=== PATIENT | male | born 1940 | race Caucasian/White ===

== ENCOUNTER 2018-05-22 11:15 | Inpatient (IN) | payer MEDICARE, OTHER ==
[~2018-05-22] VITALS: Ht 170.2 cm; Wt 105.7 kg
[2018-05-22 12:09] LABS: BASO # 0.1 x10^3/uL (0.0-0.2); BASO % 1 % (0-3); EOS # 0.2 x10^3/uL (0.0-0.7); EOS % 2 % (0-3); HEMATOCRIT 42.8 % (39.0-53.0); HEMOGLOBIN 14.7 g/dL (13.0-17.5); LYMPH % 22 % (24-48); MEAN CORPUSCULAR HEMOGLOBIN 32 pg (25-35); MEAN CORPUSCULAR HGB CONC 34 g/dL (31-37); MEAN CORPUSCULAR VOLUME 94 fL (79-100); MONO # 0.4 x10^3/uL (0.0-1.1); MONO % 5 % (0-9); NEUT # 6.6 x10^3uL (1.8-7.7); NEUT % 71 % (31-73); PLATELET COUNT 200 x10^3/uL (140-400); RED BLOOD COUNT 4.53 x10^6/uL (4.30-5.70); RED CELL DISTRIBUTION WIDTH 14.6 % (11.5-14.5); WHITE BLOOD COUNT 9.3 x10^3/uL (4.0-11.0)
[2018-05-22 12:14] LABS: CALCIUM 9.2 mg/dL (8.5-10.1); CREATININE 0.9 mg/dL (0.7-1.3); GFR 81.4; POTASSIUM 4.6 mmol/L (3.5-5.1)
[2018-05-22 12:20] LABS: PROTHROMBIN TIME PATIENT 12.2 SEC (11.7-14.0)
[2018-05-22 12:21] LABS: ALBUMIN 3.7 g/dL (3.4-5.0); ALBUMIN/GLOBULIN RATIO 1.1 (1.0-1.7); TOTAL BILIRUBIN 0.3 mg/dL (0.2-1.0); TOTAL PROTEIN 7.1 g/dL (6.4-8.2)
[2018-05-22 13:15] LABS: BILIRUBIN,URINE NEGATIVE (NEG); CLARITY,URINE CLEAR; COLOR,URINE YELLOW; NITRITE,URINE NEGATIVE (NEG); PROTEIN,URINE NEGATIVE (NEG-TRACE); UROBILINOGEN,URINE 0.2 mg/dL (0.2 mg/dL)
[2018-05-22 13:25] LABS: BACTERIA,URINE 0 /HPF (0-FEW); RBC,URINE 0 /HPF (0-2); SQUAMOUS EPITHELIAL CELL,UR OCC /LPF; WBC,URINE RARE /HPF (0-4)
[2018-05-22] MEDS ORDERED: GADOBUTROL 10 MMOL/10 ML VIAL IV ONE (14:00)
--- NOTE | 2018-05-22 15:02 | RAD ---
MRI Lumbar Spine without and with contrast History: Bilateral leg weakness, prostate cancer Technique: Multiplanar, multi sequential pre and postcontrast MR imaging was performed of the lumbar spine. Contrast: 10 cc Gadavist Comparison: None Findings: Lumbar vertebral body stature and AP alignment are maintained. There is [id number] degenerative disc disease at L4-5, minimally L2-3, L3-4, and L1-2. There is somewhat diffuse narrowing of the lumbar spinal canal on a developmental basis. There is old superior endplate concavity of T11. There is a probable small hemangioma of the T11 vertebral body, slightly hyperintense on the T1 sequence, no significant suspicious edematous marrow lesion identified. Conus terminates at L1. There is no nodular enhancement of the conus or cauda equina, no enhancement in the intervertebral disc spaces. There is nonspecific edema of the posterior subcutaneous fat. Poorly evaluated, there is likely distention of the urinary bladder, difficult to exclude posterior wall thickening. L1-L2: There is no additional spinal stenosis or neural foramina compromise. Posterior epidural epidural lipomatosis somewhat indents the posterior thecal sac. L2-L3: There is mild prominence of posterior epidural fat, mild buckling of the ligamentum flavum, and facet hypertrophic change. There is negligible disc osteophyte complex. There is overall mild attenuation of the thecal sac mostly from posterior epidural lipomatosis. There is negligible disc osteophyte complex in the inferior neural foramina. Neural foramina are not significantly narrowed. L3-L4: At the intervertebral disc space level, there is minimal disc osteophyte complex. There is a superimposed extrusion extending above the intervertebral disc space, superior extent to the superior one third of the L3 vertebral body more eccentric to the right lateral recess. This measures about 1.6 cm CC by about 0.7 cm AP by 1.1 cm transverse. At the intervertebral disc space level, there is prominence of posterior epidural fat, mild buckling of the ligamentum flavum and facet degenerative change. At the intervertebral disc space level, there is overall moderate spinal stenosis with limited preserved subarachnoid space. There is a greater degree of right lateral recess stenosis above the intervertebral disc space level by the extrusion. There is contact of the right L3 nerve root in the right lateral recess. At the mid aspect of L3, there is somewhat limited preserved subarachnoid space. Neural foramina are overall adequate. L4-L5: There is mild buckling of the ligamentum flavum and right greater than left facet degenerative change. There is very shallow posterior bulge/protrusion. There is mild prominence of posterior epidural fat. There is mild to moderate attenuation of the thecal sac mostly on a developmental basis in combination with epidural lipomatosis, mild additional right lateral recess stenosis. There is moderate to severe left and zcrp-ok-[id number] right neural foramina compromise primarily from posteriorly by facets. L5-S1: Spinal canal and neural foramina are adequate. Impression: 1. There is diffuse narrowing of the spinal canal on a developmental basis. There is additional spinal stenosis at and above the L3-4 intervertebral disc space level in part from extrusion more eccentric to the right lateral recess with contact of the right L3 nerve root. 2. There is left greater than right L4-5 neural foramina compromise. 3. There is [id number] degenerative disc disease L4-5, minimally at other levels. 4. Not fully included, there is distention of the urinary bladder, mild posterior wall thickening difficult to exclude. Electronically signed by: Nima Rodas MD (05/22/2018 2:59 PM) [email or web address]
[2018-05-22] MEDS ORDERED: fentaNYL PF VIAL 100 MCG/2 ML VIAL IV ONE (15:15)
--- NOTE | 2018-05-22 15:22 | PHYS DOC ---
Past Medical History Past Medical History: CAD, High Cholesterol, Heart Disease, Hypertension Past Surgical History: Coronary Bypass Surgery, Knee Replacement Alcohol Use: Occasionally Drug Use: None Adult General Chief Complaint Chief Complaint: MECHANICAL FALL HPI HPI Patient is a 77 year old male percent with back pain. He has had back pain for a few days but today he just could not get up his right leg was too weak so he called 911 to come to the hospital. He has had no bowel or bladder incontinence no numbness just the weakness especially with trying to move his hip Review of Systems Review of Systems Constitutional: Denies fever or chills [] Eyes: Denies change in visual acuity, redness, or eye pain [] HENT: Denies nasal congestion or sore throat [] Respiratory: Denies cough or shortness of breath [] Cardiovascular: No additional information not addressed in HPI [] GI: Denies abdominal pain, nausea, vomiting, bloody stools or diarrhea [] Integument: Denies rash or skin lesions [] Neurologic: Denies headache,s or sensory changes [] Endocrine: Denies polyuria or polydipsia [] All other systems were reviewed and found to be within normal limits, except as documented in this note. Current Medications Current Medications Current Medications Medications (Trade) Dose Ordered Sig/Naveed Start Time Stop Time Status Last Admin Dose Admin Fentanyl Citrate (Fentanyl 2ml Vial) 50 mcg 1X ONCE 05/22/18 15:15 05/22/18 15:16 DC Gadobutrol (Gadavist) 10 mmol 1X ONCE 05/22/18 14:00 05/22/18 14:01 DC 05/22/18 14:20 10 MMOL Methylprednisolone Sodium Succinate (SOLU-Medrol 125MG VIAL) 125 mg 1X ONCE 05/22/18 15:30 05/22/18 15:31 UNV Allergies Allergies Allergies Coded Allergies Type Severity Reaction Last Updated Verified No Known Drug Allergies 11/06/13 No Physical Exam Physical Exam Constitutional: Well developed, well nourished, no acute distress, non-toxic appearance. [] HENT: Normocephalic, atraumatic, bilateral external ears normal, oropharynx moist, no oral exudates, nose normal. [] Eyes: PERRLA, EOMI, conjunctiva normal, no discharge. [] Neck: Normal range of motion, no tenderness, supple, no stridor. [] Cardiovascular:Heart rate regular rhythm, no murmur [] Lungs & Thorax: Bilateral breath sounds clear to auscultation [] Abdomen: Bowel sounds normal, soft, no tenderness, no masses, no pulsatile masses. [] Skin: Warm, dry, no erythema, no rash. [] Back: Midline tenderness at L4-L5 noted Extremities: No tenderness, no cyanosis, no clubbing, ROM intact, no edema. [] Neurologic: Alert and oriented X 3, patient is decreased strength 4 out of 5 or even a little less with knee extension and hip flexion. Distal strength is intact sensation is intact pedal pulses are intact Psychologic: Affect normal, judgement normal, mood normal. [] Current Patient Data Vital Signs Vital Signs Date Time Temp Pulse Resp B/P (MAP) Pulse Ox O2 Delivery O2 Flow Rate FiO2 05/22/18 11:15 97.8 69 22 139/71 (93) 97 Room Air 97.8 Lab Values Laboratory Tests Test 05/22/18 11:50 05/22/18 13:00 White Blood Count 9.3 x10^3/uL (4.0-11.0) Red Blood Count 4.53 x10^6/uL (4.30-5.70) Hemoglobin 14.7 g/dL (13.0-17.5) Hematocrit 42.8 % (39.0-53.0) Mean Corpuscular Volume 94 fL (79-100) Mean Corpuscular Hemoglobin 32 pg (25-35) Mean Corpuscular Hemoglobin Concent 34 g/dL (31-37) Red Cell Distribution Width 14.6 % (11.5-14.5) H Platelet Count 200 x10^3/uL (140-400) Neutrophils (%) (Auto) 71 % (31-73) Lymphocytes (%) (Auto) 22 % (24-48) L Monocytes (%) (Auto) 5 % (0-9) Eosinophils (%) (Auto) 2 % (0-3) Basophils (%) (Auto) 1 % (0-3) Neutrophils # (Auto) 6.6 x10^3uL (1.8-7.7) Lymphocytes # (Auto) 2.0 x10^3/uL (1.0-4.8) Monocytes # (Auto) 0.4 x10^3/uL (0.0-1.1) Eosinophils # (Auto) 0.2 x10^3/uL (0.0-0.7) Basophils # (Auto) 0.1 x10^3/uL (0.0-0.2) Prothrombin Time 12.2 SEC (11.7-14.0) Prothrombin Time INR 1.0 (0.8-1.1) Sodium Level 142 mmol/L (136-145) Potassium Level 4.6 mmol/L (3.5-5.1) Chloride Level 106 mmol/L (98-107) Carbon Dioxide Level 29 mmol/L (21-32) Anion Gap 7 (6-14) Blood Urea Nitrogen 13 mg/dL (8-26) Creatinine 0.9 mg/dL (0.7-1.3) Estimated GFR (Cockcroft-Gault) 81.4 BUN/Creatinine Ratio 14 (6-20) Glucose Level 132 mg/dL (70-99) H Calcium Level 9.2 mg/dL (8.5-10.1) Total Bilirubin 0.3 mg/dL (0.2-1.0) Aspartate Amino Transferase (AST) 26 U/L (15-37) Alanine Aminotransferase (ALT) 48 U/L (16-63) Alkaline Phosphatase 64 U/L (46-116) Total Protein 7.1 g/dL (6.4-8.2) Albumin 3.7 g/dL (3.4-5.0) Albumin/Globulin Ratio 1.1 (1.0-1.7) Urine Collection Type Unknown Urine Color Yellow Urine Clarity Clear Urine pH 5.0 Urine Specific [place] 1.020 Urine Protein Negative mg/dL (NEG-TRACE) Urine Glucose (UA) Negative mg/dL (NEG) Urine Ketones (Stick) Negative mg/dL (NEG) Urine Blood Negative (NEG) Urine Nitrite Negative (NEG) Urine Bilirubin Negative (NEG) Urine Urobilinogen Dipstick 0.2 mg/dL (0.2 mg/dL) Urine Leukocyte Esterase Negative (NEG) Urine RBC 0 /HPF (0-2) Urine WBC Rare /HPF (0-4) Urine Squamous Epithelial Cells Occ /LPF Urine Bacteria 0 /HPF (0-FEW) Urine Mucus Marked /LPF Laboratory Tests 05/22/18 11:50 Laboratory Tests 05/22/18 11:50 EKG EKG [] Radiology/Procedures Radiology/Procedures [] Impressions: 1. There is diffuse narrowing of the spinal canal on a developmental basis. There is additional spinal stenosis at and above the L3-4 intervertebral disc space level in part from extrusion more eccentric to the right lateral recess with contact of the right L3 nerve root. 2. There is left greater than right L4-5 neural foramina compromise. 3. There is vomk-ij-jqwzhlnb degenerative disc disease L4-5, minimally at other levels. 4. Not fully included, there is distention of the urinary bladder, mild posterior wall thickening difficult to exclude. Electronically signed by: Nima Rodas MD (05/22/2018 2:59 PM) [id number] Course & Med Decision Making Course & Med Decision Making Pertinent Labs and Imaging studies reviewed. (See chart for details) []77 over male with history of prostate cancer course the PA presenting with back pain and right leg weakness he does have objective weakness on exam. MRI was done due to prostate cancer history it does show the above findings I suspect a herniated discus leading to his symptoms but he cannot walk he is too weak. He'll be admitted to the service of Dr. Dunn for physical therapy pain control and further evaluation. FENTANYL Solu-Medrol given in the emergency room Dragjoseph Disclaimer Dragon Disclaimer This electronic medical record was generated, in whole or in part, using a voice recognition dictation system. Departure Departure Impression: Primary Impression: Back pain Disposition: ADMITTED INPATIENT Admitting Physician: Tim Dunn Condition: STABLE Referrals: NO PCP (PCP) NURIA LOU MD May 22, 2018 15:22
[2018-05-22] MEDS ORDERED: methylPREDNISolone SOD SUCC PF 125 MG/2 ML VIAL. IV ONE (15:30)
[2018-05-22] MEDS ORDERED: MORPHINE SULFATE 4 MG/ML VIAL. IV PRN (15:30)
[2018-05-22 17:50] VITALS: BP 185/89
[2018-05-22 19:00] VITALS: BP 157/72
--- NOTE | 2018-05-22 21:14 | HP ---
ADMIT DATE: 05/22/2018 CHIEF COMPLAINT: Back pain after a fall. HISTORY OF PRESENT ILLNESS: The patient is a pleasant 77-year-old male who fell. He has had back pain for a couple of days. He called 911. Rates his symptoms are 8/10. We gave him some meds in the ER but that was not working. We are going to admit the patient. We can be doing some physical therapy, occupational therapy. It should be noted that we did do some imaging, but he does have some bulging disks. PAST MEDICAL HISTORY: CAD, hypertension, hyperlipidemia, coronary artery bypass surgery and knee replacement. ALLERGIES: None. FAMILY HISTORY: Coronary artery disease. SOCIAL HISTORY: Does not drink, smoke or take drugs. MEDICATIONS: Reviewed, please refer to the MRAD. REVIEW OF SYSTEMS: GENERAL: No history of weight change, weakness or fevers. SKIN: No bruising, hair changes or rashes. EYES: No blurred, double or loss of vision. NOSE AND THROAT: No history of nosebleeds, hoarseness or sore throat. HEART: No history of palpitations, chest pain or shortness of breath on exertion. LUNGS: Denies cough, hemoptysis, wheezing or shortness of breath. GASTROINTESTINAL: Denies changes in appetite, nausea, vomiting, diarrhea or constipation. GENITOURINARY: No history of frequency, urgency, hesitancy or nocturia. NEUROLOGICAL: The patient complains of leg weakness. PSYCHIATRIC: No history of panic, anxiety or depression. ENDOCRINE: No history of heat or cold intolerance, polyuria or polydipsia. MUSCULOSKELETAL: The patient complains of back pain. PHYSICAL EXAMINATION: VITAL SIGNS: Temperature afebrile, pulse 90, respirations 18 and blood pressure 144/90. GENERAL: He is alert and cooperative. HEART: Normal S1 and S2. LUNGS: Clear. ABDOMEN: Soft. EXTREMITIES: No edema. SKIN: No rashes. ENDOCRINE: No thyromegaly. LYMPHATICS: No cervical nodes. HEMATOPOIETIC: No bruising. LABORATORY DATA: Hematology is normal. Electrolytes are normal. Glucose is 132. RADIOLOGICAL DATA: Lumbar spine MRI shows diffuse narrowing of the spinal canal on a developmental basis. There is additional spinal stenosis at above L3-L4 with intravertebral disk space extrusion. There is left greater than right L4-L5 neural foraminal compromise. There is [id number] degenerative disk disease at L4-L5. ASSESSMENT AND PLAN: Radiculopathy. The patient has been admitted. We will consult Dr. Castillo. Physical Therapy and Occupational Therapy consult. PT, OT. IV Solu-Medrol, p.r.n. narcotics. Frequent labs. Home meds. NIAL Claritza ACKERMAN DO DR: ELISE/garcia JOB#: [id number] / [id number]
[2018-05-22 22:58] VITALS: BP 172/76
[2018-05-23 03:00] VITALS: BP 138/75
[2018-05-23 07:00] VITALS: BP 160/71
[2018-05-23 11:00] VITALS: BP 164/70
--- NOTE | 2018-05-23 12:01 | PDOC ---
PROGRESS NOTES Chief Complaint Chief Complaint Back pain Radiculopathy CAD HTN HLD CABG Knee replacement History of Present Illness History of Present Illness Pt seen and examined Dw RN VSS Pt states pain is greatly improved with steroids Pt states improved mobility in legs Vitals Vitals Vital Signs Date Time Temp Pulse Resp B/P (MAP) Pulse Ox O2 Delivery O2 Flow Rate FiO2 05/23/18 11:00 98.1 72 18 164/70 (101) 96 Room Air 98.1 Physical Exam General: Alert, Cooperative, No acute distress Heart: Regular rate, No murmurs Lungs: Clear, Other Abdomen: Soft, No tenderness Extremities: No clubbing, No cyanosis Skin: No rashes, No breakdown Labs LABS Laboratory Tests Test 05/22/18 13:00 Urine Collection Type Unknown Urine Color Yellow Urine Clarity Clear Urine pH 5.0 Urine Specific [place] 1.020 Urine Protein Negative mg/dL (NEG-TRACE) Urine Glucose (UA) Negative mg/dL (NEG) Urine Ketones (Stick) Negative mg/dL (NEG) Urine Blood Negative (NEG) Urine Nitrite Negative (NEG) Urine Bilirubin Negative (NEG) Urine Urobilinogen Dipstick 0.2 mg/dL (0.2 mg/dL) Urine Leukocyte Esterase Negative (NEG) Urine RBC 0 /HPF (0-2) Urine WBC Rare /HPF (0-4) Urine Squamous Epithelial Cells Occ /LPF Urine Bacteria 0 /HPF (0-FEW) Urine Mucus Marked /LPF Review of Systems Review of Systems CO pain CO fatigue Assessment and Plan Assessmemt and Plan Back pain Radiculopathy CAD HTN HLD CABG Knee replacement Plan: Neurosurgery consult Continue solumedrol Nystatin powder for skin PT/OT Probable D/C to home if ok with PT/OT Comment Review of Relevant I have reviewed the following items katie (where applicable) has been applied. Labs Laboratory Tests Test 05/22/18 11:50 05/22/18 13:00 White Blood Count 9.3 x10^3/uL (4.0-11.0) Red Blood Count 4.53 x10^6/uL (4.30-5.70) Hemoglobin 14.7 g/dL (13.0-17.5) Hematocrit 42.8 % (39.0-53.0) Mean Corpuscular Volume 94 fL (79-100) Mean Corpuscular Hemoglobin 32 pg (25-35) Mean Corpuscular Hemoglobin Concent 34 g/dL (31-37) Red Cell Distribution Width 14.6 % (11.5-14.5) Platelet Count 200 x10^3/uL (140-400) Neutrophils (%) (Auto) 71 % (31-73) Lymphocytes (%) (Auto) 22 % (24-48) Monocytes (%) (Auto) 5 % (0-9) Eosinophils (%) (Auto) 2 % (0-3) Basophils (%) (Auto) 1 % (0-3) Neutrophils # (Auto) 6.6 x10^3uL (1.8-7.7) Lymphocytes # (Auto) 2.0 x10^3/uL (1.0-4.8) Monocytes # (Auto) 0.4 x10^3/uL (0.0-1.1) Eosinophils # (Auto) 0.2 x10^3/uL (0.0-0.7) Basophils # (Auto) 0.1 x10^3/uL (0.0-0.2) Prothrombin Time 12.2 SEC (11.7-14.0) Prothromb Time International Ratio 1.0 (0.8-1.1) Sodium Level 142 mmol/L (136-145) Potassium Level 4.6 mmol/L (3.5-5.1) Chloride Level 106 mmol/L (98-107) Carbon Dioxide Level 29 mmol/L (21-32) Anion Gap 7 (6-14) Blood Urea Nitrogen 13 mg/dL (8-26) Creatinine 0.9 mg/dL (0.7-1.3) Estimated GFR (Cockcroft-Gault) 81.4 BUN/Creatinine Ratio 14 (6-20) Glucose Level 132 mg/dL (70-99) Calcium Level 9.2 mg/dL (8.5-10.1) Total Bilirubin 0.3 mg/dL (0.2-1.0) Aspartate Amino Transf (AST/SGOT) 26 U/L (15-37) Alanine Aminotransferase (ALT/SGPT) 48 U/L (16-63) Alkaline Phosphatase 64 U/L (46-116) Total Protein 7.1 g/dL (6.4-8.2) Albumin 3.7 g/dL (3.4-5.0) Albumin/Globulin Ratio 1.1 (1.0-1.7) Urine Collection Type Unknown Urine Color Yellow Urine Clarity Clear Urine pH 5.0 Urine Specific [place] 1.020 Urine Protein Negative mg/dL (NEG-TRACE) Urine Glucose (UA) Negative mg/dL (NEG) Urine Ketones (Stick) Negative mg/dL (NEG) Urine Blood Negative (NEG) Urine Nitrite Negative (NEG) Urine Bilirubin Negative (NEG) Urine Urobilinogen Dipstick 0.2 mg/dL (0.2 mg/dL) Urine Leukocyte Esterase Negative (NEG) Urine RBC 0 /HPF (0-2) Urine WBC Rare /HPF (0-4) Urine Squamous Epithelial Cells Occ /LPF Urine Bacteria 0 /HPF (0-FEW) Urine Mucus Marked /LPF Laboratory Tests Test 05/22/18 13:00 Urine Collection Type Unknown Urine Color Yellow Urine Clarity Clear Urine pH 5.0 Urine Specific [place] 1.020 Urine Protein Negative mg/dL (NEG-TRACE) Urine Glucose (UA) Negative mg/dL (NEG) Urine Ketones (Stick) Negative mg/dL (NEG) Urine Blood Negative (NEG) Urine Nitrite Negative (NEG) Urine Bilirubin Negative (NEG) Urine Urobilinogen Dipstick 0.2 mg/dL (0.2 mg/dL) Urine Leukocyte Esterase Negative (NEG) Urine RBC 0 /HPF (0-2) Urine WBC Rare /HPF (0-4) Urine Squamous Epithelial Cells Occ /LPF Urine Bacteria 0 /HPF (0-FEW) Urine Mucus Marked /LPF Medications Current Medications Gadobutrol (Gadavist) 10 mmol 1X ONCE IV Last administered on 05/22/18at 14:20 ; Start 05/22/18 at 14:00; Stop 05/22/18 at 14:01; Status DC Fentanyl Citrate (Fentanyl 2ml Vial) 50 mcg 1X ONCE IV Last administered on at 16:28; Start 05/22/18 at 15:15; Stop 05/22/18 at 15:16; Status DC Methylprednisolone Sodium Succinate (SOLU-Medrol 125MG VIAL) 125 mg 1X ONCE IV Last administered on 05/22/18at 16:26; Start 05/22/18 at 15:30; Stop 05/22/18 at 15:31; Status DC Morphine Sulfate (Morphine Sulfate) 4 mg PRN Q2HR PRN IV PAIN Last administered on 05/23/18at 05:16; Start 05/22/18 at 15:30; Stop 05/23/18 at 15:29 Methylprednisolone Sodium Succinate (SOLU-Medrol 40MG VIAL) 30 mg DAILY IV ; Start 05/23/18 at 09:00 Nystatin (Nystop) 1 bartolo BID TP ; Start 05/23/18 at 09:45 Active Scripts Active Reported No Known Medications Prior To Admisstion (Info) Each 1 Each Vitals/I & O Vital Sign - Last 24 Hours 05/22/18 05/22/18 05/22/18 05/22/18 12:00 12:30 13:00 16:00 Pulse 64 72 64 66 Resp 21 25 22 20 Pulse Ox 96 96 95 93 05/22/18 05/22/18 05/22/18 05/22/18 16:28 16:30 17:50 19:00 Temp 98.2 98.6 98.2 98.6 Pulse 63 63 67 Resp 17 20 18 18 B/P (MAP) 185/89 (121) 157/72 (100) Pulse Ox 97 90 97 93 O2 Delivery Room Air Room Air Room Air 05/22/18 05/23/18 05/23/18 05/23/18 22:58 03:00 05:16 05:48 Temp 97.7 97.9 97.7 97.9 Pulse 71 61 Resp 18 18 16 16 B/P (MAP) 172/76 (108) 138/75 (96) Pulse Ox 95 95 O2 Delivery Room Air Room Air Room Air Room Air 05/23/18 05/23/18 07:00 11:00 Temp 97.7 98.1 97.7 98.1 Pulse 60 72 Resp 18 18 B/P (MAP) 160/71 (100) 164/70 (101) Pulse Ox 96 96 O2 Delivery Room Air Room Air Intake and Output 05/22/18 05/22/18 05/23/18 15:00 23:00 07:00 Intake Total 180 ml 200 ml Output Total 400 ml Balance 180 ml -200 ml CASTCRYSTALNIAL K III DO May 23, 2018 12:01
[2018-05-23] MEDS: NYSTATIN TOPICAL POWDER 15GM BOTTLE. TP SCH ×2 (12:30→20:03)
[2018-05-23] MEDS: methylPREDNISolone SOD SUCC PF 40 MG/ML VIAL. IV SCH (12:31)
[2018-05-23 15:00] VITALS: BP 143/64
[2018-05-23 19:00] VITALS: BP 145/68
[2018-05-23 23:00] VITALS: BP 155/75
[2018-05-24 03:00] VITALS: BP 169/86
[2018-05-24 05:05] LABS: BASO % 0 % (0-3); EOS # 0.1 x10^3/uL (0.0-0.7); EOS % 0 % (0-3); HEMATOCRIT 41.1 % (39.0-53.0); HEMOGLOBIN 14.1 g/dL (13.0-17.5); LYMPH # 3.5 x10^3/uL (1.0-4.8); LYMPH % 25 % (24-48); MEAN CORPUSCULAR HEMOGLOBIN 32 pg (25-35); MEAN CORPUSCULAR HGB CONC 34 g/dL (31-37); MEAN CORPUSCULAR VOLUME 94 fL (79-100); MONO # 0.5 x10^3/uL (0.0-1.1); MONO % 4 % (0-9); NEUT % 71 % (31-73); PLATELET COUNT 206 x10^3/uL (140-400); RED BLOOD COUNT 4.39 x10^6/uL (4.30-5.70); RED CELL DISTRIBUTION WIDTH 14.6 % (11.5-14.5)
[2018-05-24 05:14] LABS: CALCIUM 8.9 mg/dL (8.5-10.1); CREATININE 0.9 mg/dL (0.7-1.3); GFR 81.4; POTASSIUM 3.9 mmol/L (3.5-5.1)
[2018-05-24 07:00] VITALS: BP 197/95
[2018-05-24] MEDS: methylPREDNISolone SOD SUCC PF 40 MG/ML VIAL. IV SCH (08:22)
[2018-05-24] MEDS: NYSTATIN TOPICAL POWDER 15GM BOTTLE. TP SCH (08:23)
[2018-05-24 11:00] VITALS: BP 159/84
--- NOTE | 2018-05-24 14:29 | PDOC ---
PROGRESS NOTES Chief Complaint Chief Complaint CC: Back pain Radiculopathy CAD HTN HLD CABG Knee replacement History of Present Illness History of Present Illness Pt. seen and examined Pt. alert and oriented Pt. at baseline Pt. will be discharged home today on Medrol Dosepak DW nursing and PT VSS Pt.'s pain continues to be improved w/ steroids Pt. states improved mobility in legs Vitals Vitals Vital Signs Date Time Temp Pulse Resp B/P (MAP) Pulse Ox O2 Delivery O2 Flow Rate FiO2 05/24/18 11:00 97.6 73 18 159/84 (109) 97 Room Air 97.6 Physical Exam General: Alert, Cooperative, No acute distress Heart: Regular rate, No murmurs Lungs: Clear, Other Abdomen: Soft, No tenderness Extremities: No clubbing, No cyanosis Skin: No rashes, No breakdown Labs LABS Laboratory Tests Test 05/24/18 03:45 White Blood Count 14.0 x10^3/uL (4.0-11.0) Red Blood Count 4.39 x10^6/uL (4.30-5.70) Hemoglobin 14.1 g/dL (13.0-17.5) Hematocrit 41.1 % (39.0-53.0) Mean Corpuscular Volume 94 fL (79-100) Mean Corpuscular Hemoglobin 32 pg (25-35) Mean Corpuscular Hemoglobin Concent 34 g/dL (31-37) Red Cell Distribution Width 14.6 % (11.5-14.5) Platelet Count 206 x10^3/uL (140-400) Neutrophils (%) (Auto) 71 % (31-73) Lymphocytes (%) (Auto) 25 % (24-48) Monocytes (%) (Auto) 4 % (0-9) Eosinophils (%) (Auto) 0 % (0-3) Basophils (%) (Auto) 0 % (0-3) Neutrophils # (Auto) 10.0 x10^3uL (1.8-7.7) Lymphocytes # (Auto) 3.5 x10^3/uL (1.0-4.8) Monocytes # (Auto) 0.5 x10^3/uL (0.0-1.1) Eosinophils # (Auto) 0.1 x10^3/uL (0.0-0.7) Basophils # (Auto) 0.0 x10^3/uL (0.0-0.2) Sodium Level 137 mmol/L (136-145) Potassium Level 3.9 mmol/L (3.5-5.1) Chloride Level 102 mmol/L (98-107) Carbon Dioxide Level 25 mmol/L (21-32) Anion Gap 10 (6-14) Blood Urea Nitrogen 21 mg/dL (8-26) Creatinine 0.9 mg/dL (0.7-1.3) Estimated GFR (Cockcroft-Gault) 81.4 Glucose Level 121 mg/dL (70-99) Calcium Level 8.9 mg/dL (8.5-10.1) Review of Systems Review of Systems Pt. denies sig. back pain and weakness Pt. denies LE paraesthesias Assessment and Plan Assessmemt and Plan CC: Back pain Radiculopathy Assessment: Back pain Radiculopathy CAD HTN HLD CABG Knee replacem Plan: Discharged home on Medrol Dosepak PT/OT Limit strenuous activity Continue home meds Continue diet Comment Review of Relevant I have reviewed the following items katie (where applicable) has been applied. Labs Laboratory Tests Test 05/23/18 11:29 05/24/18 03:45 Glucose (Fingerstick) 176 mg/dL (70-99) White Blood Count 14.0 x10^3/uL (4.0-11.0) Red Blood Count 4.39 x10^6/uL (4.30-5.70) Hemoglobin 14.1 g/dL (13.0-17.5) Hematocrit 41.1 % (39.0-53.0) Mean Corpuscular Volume 94 fL (79-100) Mean Corpuscular Hemoglobin 32 pg (25-35) Mean Corpuscular Hemoglobin Concent 34 g/dL (31-37) Red Cell Distribution Width 14.6 % (11.5-14.5) Platelet Count 206 x10^3/uL (140-400) Neutrophils (%) (Auto) 71 % (31-73) Lymphocytes (%) (Auto) 25 % (24-48) Monocytes (%) (Auto) 4 % (0-9) Eosinophils (%) (Auto) 0 % (0-3) Basophils (%) (Auto) 0 % (0-3) Neutrophils # (Auto) 10.0 x10^3uL (1.8-7.7) Lymphocytes # (Auto) 3.5 x10^3/uL (1.0-4.8) Monocytes # (Auto) 0.5 x10^3/uL (0.0-1.1) Eosinophils # (Auto) 0.1 x10^3/uL (0.0-0.7) Basophils # (Auto) 0.0 x10^3/uL (0.0-0.2) Sodium Level 137 mmol/L (136-145) Potassium Level 3.9 mmol/L (3.5-5.1) Chloride Level 102 mmol/L (98-107) Carbon Dioxide Level 25 mmol/L (21-32) Anion Gap 10 (6-14) Blood Urea Nitrogen 21 mg/dL (8-26) Creatinine 0.9 mg/dL (0.7-1.3) Estimated GFR (Cockcroft-Gault) 81.4 Glucose Level 121 mg/dL (70-99) Calcium Level 8.9 mg/dL (8.5-10.1) Laboratory Tests Test 05/24/18 03:45 White Blood Count 14.0 x10^3/uL (4.0-11.0) Red Blood Count 4.39 x10^6/uL (4.30-5.70) Hemoglobin 14.1 g/dL (13.0-17.5) Hematocrit 41.1 % (39.0-53.0) Mean Corpuscular Volume 94 fL (79-100) Mean Corpuscular Hemoglobin 32 pg (25-35) Mean Corpuscular Hemoglobin Concent 34 g/dL (31-37) Red Cell Distribution Width 14.6 % (11.5-14.5) Platelet Count 206 x10^3/uL (140-400) Neutrophils (%) (Auto) 71 % (31-73) Lymphocytes (%) (Auto) 25 % (24-48) Monocytes (%) (Auto) 4 % (0-9) Eosinophils (%) (Auto) 0 % (0-3) Basophils (%) (Auto) 0 % (0-3) Neutrophils # (Auto) 10.0 x10^3uL (1.8-7.7) Lymphocytes # (Auto) 3.5 x10^3/uL (1.0-4.8) Monocytes # (Auto) 0.5 x10^3/uL (0.0-1.1) Eosinophils # (Auto) 0.1 x10^3/uL (0.0-0.7) Basophils # (Auto) 0.0 x10^3/uL (0.0-0.2) Sodium Level 137 mmol/L (136-145) Potassium Level 3.9 mmol/L (3.5-5.1) Chloride Level 102 mmol/L (98-107) Carbon Dioxide Level 25 mmol/L (21-32) Anion Gap 10 (6-14) Blood Urea Nitrogen 21 mg/dL (8-26) Creatinine 0.9 mg/dL (0.7-1.3) Estimated GFR (Cockcroft-Gault) 81.4 Glucose Level 121 mg/dL (70-99) Calcium Level 8.9 mg/dL (8.5-10.1) Medications Current Medications Gadobutrol (Gadavist) 10 mmol 1X ONCE IV Last administered on 05/22/18at 14:20 ; Start 05/22/18 at 14:00; Stop 05/22/18 at 14:01; Status DC Fentanyl Citrate (Fentanyl 2ml Vial) 50 mcg 1X ONCE IV Last administered on at 16:28; Start 05/22/18 at 15:15; Stop 05/22/18 at 15:16; Status DC Methylprednisolone Sodium Succinate (SOLU-Medrol 125MG VIAL) 125 mg 1X ONCE IV Last administered on 05/22/18at 16:26; Start 05/22/18 at 15:30; Stop 05/22/18 at 15:31; Status DC Morphine Sulfate (Morphine Sulfate) 4 mg PRN Q2HR PRN IV PAIN Last administered on 05/23/18at 05:16; Start 05/22/18 at 15:30; Stop 05/23/18 at 15:29; Status DC Methylprednisolone Sodium Succinate (SOLU-Medrol 40MG VIAL) 30 mg DAILY IV Last administered on 05/24/18at 08:22; Start 05/23/18 at 09:00; Stop 05/24/18 at 13: 36; Status DC Nystatin (Nystop) 1 bartolo BID TP Last administered on 9/2/18at 08:23; Start at 09:45; Stop 05/24/18 at 13:36; Status DC Active Scripts Active Reported No Known Medications Prior To Admisstion (Info) Each 1 Each Vitals/I & O Vital Sign - Last 24 Hours 05/23/18 05/23/18 05/23/18 05/23/18 15:00 19:00 20:00 23:00 Temp 98.1 98.1 98.3 98.1 98.1 98.3 Pulse 78 69 62 Resp B/P (MAP) 143/64 (90) 145/68 (93) 155/75 (101) Pulse Ox 96 96 95 O2 Delivery Room Air Room Air Room Air 05/24/18 05/24/18 05/24/18 05/24/18 03:00 07:00 08:00 11:00 Temp 97.6 97.6 97.6 97.6 97.6 97.6 Pulse 56 62 73 Resp B/P (MAP) 169/86 (113) 197/95 (129) 159/84 (109) Pulse Ox 97 97 97 O2 Delivery Room Air Room Air Room Air Room Air Intake and Output 05/23/18 05/23/18 05/24/18 15:00 23:00 07:00 Intake Total 420 ml 200 ml Output Total 0 ml Balance 420 ml 200 ml 0 ml NURIS ACKERMAN III, DO May 24, 2018 14:29
== END 2018-05-24 12:45 | disposition home or self-care (01) | DRG 74 ==
LOC: ER 11:15 → 4 NORTH 15:17
PROVIDERS: ADMIT Internal Medicine; ATTEND Internal Medicine
DX: M54.10 Radiculopathy, site unspecified (principal); E78.00 Pure hypercholesterolemia, unspecified; E78.5 Hyperlipidemia, unspecified; I10 Essential (primary) hypertension; I25.10 Atherosclerotic heart disease of native coronary artery without angina pectoris; Z96.659 Presence of unspecified artificial knee joint; W18.30XA Fall on same level, unspecified, initial encounter; Y93.89 Activity, other specified; Y92.89 Other specified places as the place of occurrence of the external cause; Y99.8 Other external cause status; Z82.49 Family history of ischemic heart disease and other diseases of the circulatory system; Z95.1 Presence of aortocoronary bypass graft; Z85.46 Personal history of malignant neoplasm of prostate
CPT/HCPCS: 36415; 72158; 80048; 80053; 81001; 82962; 85025; 85610; 96374; 96375; A9585; J2270; J2920; J2930; J3010; 97110; 97116; 99285-25